=== PATIENT | female | born 1965 | race Asian ===

== ENCOUNTER → 2018-01-12 09:32 | Outpatient (CLI) | payer OTHER, BC, SELFPAY ==
--- NOTE | 2018-01-12 | DI.NM.S_ITS ---
PROCEDURE: NM RENAL FLOW AND FUNCTION RADIOPHARMACEUTICAL: 10.2 mCi Tc-99m MAG3 IV. INDICATIONS: RENAL MASS TECHNIQUE: The patient was hydrated orally before the examination was begun. After intravenous administration of Tc-99m MAG3, posterior abdominal radionuclide angiogram and sequential (1 minute per frame) renal images were obtained. A time-activity curve for each kidney was generated and analyzed. COMPARISON: [facility], CT, ABDOMEN/PELVIS WITHOUT CONTRAS, 08/04/2017, 14:46. FINDINGS: Perfusion: There is normal vascular perfusion to both kidneys. Morphology: Kidneys are normal in shape and size. There are no central photopenic regions to suggest dilated collecting systems. The ureters and bladder are visualized, and appear normal in morphology. Function: Both kidneys demonstrate normal cortical tracer uptake, with [id number] activity ranging from 3 to 5 minutes. The right kidney contributes to 40% of total renal function. The left kidney contributes 60% of total renal function. There is normal tracer excretion by both kidneys, and subsequent clearance of activity from both renal collecting systems. IMPRESSION: 1. Normal bilateral renal flow, cortical tracer uptake and tracer excretion. 2. Renal split function 40% right kidney and 60% left kidney. Dictated by: Shital Dempsey MD, PhD on 01/12/2018 at 12:09 Approved by: Shital Dempsey MD, PhD on 01/12/2018 at 12:12
--- NOTE | 2018-01-12 | DI.RAD.S_ITS ---
PROCEDURE: XR CHEST 2V INDICATIONS: PRE PROCEDURE TECHNIQUE: 2 views of the chest were acquired. COMPARISON: None. FINDINGS: Surgical changes and devices: None. Lungs and pleura: No pleural effusions or pneumothorax. Lungs are clear. Mediastinum: Mediastinal contours are normal. Heart size is normal. Bones and chest wall: No suspicious bony abnormalities. Soft tissues appear unremarkable. IMPRESSION: No acute cardiopulmonary pathology. Dictated by: Rajinder Whitten M.D. on 01/12/2018 at 10:11 Approved by: Rajinder Whitten M.D. on 01/12/2018 at 10:11
[2018-01-12 11:06] LABS: Add Manual Diff / Slide Review NO; Basophils Percent Auto 0.8 % (0-2); Eosinophils Percent Auto 1.4 % (2-4); Hemoglobin 13.7 g/dL (12.0-16.0); Lymphocytes Percent Auto 35.5 % (25-40); Mean Corpuscular HGB Conc 34.3 % (30-36); Mean Corpuscular Hemoglobin 32.2 PG (26-34); Mean Corpuscular Volume 93.9 fL (80-100); Monocytes Percent Auto 4.9 % (3-14); Neutrophils Absolute Auto 3100 /uL (3000-5900); Neutrophils Percent Auto 57.4 % (50-75); Platelet Count 251 X10^3/uL (150-400); Red Blood Cell Count 4.26 X10^6/uL (4.0-5.2); Red Cell Distribution Width 12.8 % (11.6-14.8); White Blood Cell Count 5.4 X10^3/uL (4.5-11.0)
[2018-01-12 11:32] LABS: Prothrombin Time 10.7 SECONDS (10.1-12.7)
[2018-01-12 11:35] LABS: PTT Partial Thromboplastin Tim 30 SECONDS (26.4-36.2)
[2018-01-12 11:46] LABS: Alanine Aminotransferase 22 IU/L (9-52); Albumin 4.6 g/dL (3.5-5.0); Albumin Globulin Ratio 1.4 (1.0-2.8); Alkaline Phosphatase 47 U/L (38-126); Aspartate Aminotransferase 22 IU/L (14-36); BUN Creatinine Ratio 18.6 (6-22); Bilirubin Total 0.5 mg/dL (0.2-1.3); Blood Urea Nitrogen 13 mg/dL (7-17); Calcium 9.3 mg/dL (8.4-10.2); Carbon Dioxide 30 mmol/L (22-32); Chloride 103 mmol/L (98-107); Estimated Glomerular Filt Rate > 60.0 mL/min (>60); Globulin 3.2 g/dL (1.7-4.1); Glucose 94 mg/dL (70-100); HEMOLYSIS < 15 (0-50); Potassium 3.7 mmol/L (3.4-5.1); Sodium 144 mmol/L (137-145); Total Protein 7.8 g/dL (6.3-8.2)
== END ==
PROVIDERS: PCP Family Medicine; Visit Provider Urology
DX: N28.89 Other specified disorders of kidney and ureter (principal); Z01.818 Encounter for other preprocedural examination
CPT/HCPCS: 36415; 71046; 78708; 80053; 85025; 85610; 85730; 93005; 93010; A9562

== ENCOUNTER → 2018-04-30 08:33 | Outpatient (CLI) | payer OTHER, BC, SELFPAY ==
--- NOTE | 2018-04-30 | DI.US.S_ITS ---
PROCEDURE: US ABDOMEN LIMITED INDICATIONS: GALLBADDER POLYP TECHNIQUE: Real-time focused scanning was performed of the abdomen, with image documentation. COMPARISON: [facility], CT, ABDOMEN/PELVIS WITHOUT CONTRAS, 08/04/2017, 14:46. [facility], [place], ABDOMEN COMPLETE, 08/04/2017, 15:37. FINDINGS: 2 gallbladder polyps, largest measuring 6 mm and the smaller 3 mm which is unchanged from prior exam. Incidental finding of cavernous hemangioma within the anterior right lobe liver unchanged from prior exams measuring 9 mm. IMPRESSION: No change in appearance or size of 2 small gallbladder polyps. Dictated by: Chuy Fernandez [facility] Interpreted: Tim Smith MD on 04/30/2018 at 11:34 Approved by: Tim Smith M.D. on 04/30/2018 at 12:34
== END ==
PROVIDERS: PCP Family Medicine; Visit Provider Surgery
DX: K82.4 Cholesterolosis of gallbladder (principal)
CPT/HCPCS: 76705

== ENCOUNTER → 2018-09-25 15:38 | Outpatient (CLI) | payer OTHER, BC, SELFPAY | PROVIDERS: PCP Family Medicine; Visit Provider Urology | DX: D30.00 Benign neoplasm of unspecified kidney (principal); Z53.9 Procedure and treatment not carried out, unspecified reason ==

== ENCOUNTER → 2018-09-30 07:36 | Outpatient (CLI) | payer OTHER, BC, SELFPAY ==
[2018-09-30 09:22] LABS: BUN Creatinine Ratio 18.6 (6-22); Blood Urea Nitrogen 13 mg/dL (7-17); Estimated Glomerular Filt Rate > 60.0 mL/min (>60)
== END ==
PROVIDERS: PCP Family Medicine; Visit Provider Urology
DX: N17.0 Acute kidney failure with tubular necrosis (principal)
CPT/HCPCS: 36415; 82565; 84520

== ENCOUNTER → 2018-10-01 15:44 | Outpatient (CLI) | payer OTHER, BC, SELFPAY ==
--- NOTE | 2018-10-01 | DI.CT.S_ITS ---
PROCEDURE: CT ABDOMEN PELVIS WO/W CON INDICATIONS: Benign neoplasm of unspecified kidney TECHNIQUE: Optional 5 mm thick noncontrast images acquired from the diaphragm to the symphysis pubis. After the administration of intravenous contrast, 5 mm thick images acquired from the diaphragm to the symphysis pubis after a 10-minute delay. 2 mm thick coronal and sagittal reformats were then performed of the kidneys and ureters. For radiation dose reduction, the following was used: automated exposure control, adjustment of mA and/or kV according to patient size. COMPARISON: [facility], MR, ABDOMEN WITH AND WITHOUT CONTR, 08/25/2009, 9:57. [facility], CT, ABDOMEN/PELVIS WITHOUT CONTRAS, 08/04/2017, 14:46. FINDINGS: Image quality: Excellent. Lung bases: Lung bases are clear. Heart size is normal. Urinary system: Both kidneys are normal in size, without hydronephrosis or nephrolithiasis on pre-contrast images. The fat containing mass previously visualized at the lower pole of the left kidney has been surgically removed. No findings to suggest recurrence. A there are subcentimeter low density cortical lesions within the right renal cortex consistent with renal cysts. No perinephric fat stranding. There is normal bilateral renal enhancement. Renal calyces appear normal in morphology when filled with contrast. Opacified portions of both ureters demonstrate normal caliber. Bladder wall thickness is normal. No calcified bladder stones. Other solid organs: Liver is normal in size and enhancement. 3 low-density hepatic cyst and an adjacent hemangiomas are present within the inferior right hepatic lobe. A 5 mm calculus is present within the gallbladder. No gallbladder wall thickening or pericholecystic fluid. Biliary system is non dilated. Pancreas enhances normally. Spleen is normal in size and enhancement. No adrenal nodules. Peritoneum and bowel: Bowel loops demonstrate normal wall thickness and caliber. No free fluid or air. Nodes and vessels: No retroperitoneal or mesenteric adenopathy by size criteria. Aorta and inferior vena cava are normal in size. Abdominal wall: No ventral hernias. Pelvis: No pathologic free pelvic fluid. No inguinal hernias or adenopathy. Bones: No suspicious bony lesions. A small bone island is present within the right femoral neck. No vertebral body compression fractures. IMPRESSION: 1. 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 No findings to suggest tumor recurrence. Dictated by: Sveta Cortes M.D. on 10/01/2018 at 16:42 Approved by: Sveta Cortes M.D. on 10/01/2018 at 16:48
== END ==
PROVIDERS: PCP Family Medicine; Visit Provider Urology
DX: D30.10 Benign neoplasm of unspecified renal pelvis (principal)
CPT/HCPCS: 74178; Q9967